=== PATIENT | male | born 1950 | race Two or more races ===

== ENCOUNTER 2017-11-30 16:11 | Emergency (ER) | payer BC ==
[~2017-11-30] VITALS: Ht 170.2 cm; Wt 72.6 kg
[2017-11-30 18:09] LABS: Hematocrit 31.9 % (41.0-53.0); Hemoglobin 11.1 g/dL (13.5-17.5); Mean Corpuscular Hemoglobin 29.7 pg (28.0-32.0); Mean Corpuscular Hgb Conc. 34.8 g/dL (32.0-36.0); Mean Corpuscular Volume 85.5 fL (80.0-100.0); Platelet Count (auto) 137 10^3/uL (140-450); Red Blood Cells 3.73 10^6/uL (4.5-5.90)
[2017-11-30 18:47] LABS: Alanine Aminotransferase 15 U/L (16-61); Albumin 3.7 g/dL (3.4-5.0); Alkaline Phosphatase 77 U/L (45-117); Anion Gap 7 (5-15); Aspartate Aminotransferase 19 U/L (15-37); BUN/Creatinine Ratio 15.6; Bilirubin, Total 0.6 mg/dL (0.2-1.0); Blood Urea Nitrogen 27 mg/dL (7-18); Calcium 8.1 mg/dL (8.5-10.1); Carbon Dioxide 24 mmol/L (21-32); Chloride 104 mmol/L (98-107); GFR African American 51 mL/min; GFR Non-African American 42 mL/min; Glucose 102 mg/dL (74-106); Magnesium 2.2 mg/dL (1.6-2.6); Potassium 4.5 mmol/L (3.5-5.1); Sodium 135 mmol/L (136-145); Total Protein 7.6 g/dL (6.4-8.2)
[2017-11-30 18:55] LABS: Band Neutrophils % (manual) 0; Basophils % (manual) 0 (0.0-2.0); Blast Cells 0; Eosinophils % (manual) 0 (0-7); Metamyelocytes % 0; Myelocytes % 0; Promyelocytes % 0; Reactive Lymphocytes 0
[2017-11-30 19:18] LABS: Lymphocytes % (manual) 29 (10.0-50.0); Monocytes % (manual) 9 (0-12)
[2017-11-30 23:12] VITALS: BP 126/69
== END 2017-11-30 23:14 | disposition home or self-care (01) ==
LOC: ER 16:11
DX: B34.9 Viral infection, unspecified (principal); R25.3 Fasciculation; I10 Essential (primary) hypertension; Z94.4 Liver transplant status
CPT/HCPCS: 36415; 80053; 83735; 84484; 85007; 85027; 93005